=== PATIENT | male | born 1945 | race Caucasian/White ===

== ENCOUNTER 2022-10-04 11:02 | Emergency (ER) | payer BC, SELFPAY ==
--- NOTE | ~2022-10-04 | XR_ITS ---
EXAMINATION: XR CHEST CLINICAL INFORMATION: Cough COMPARISON: None available. TECHNIQUE: 2 views of the chest were obtained. FINDINGS: Status post median sternotomy. Aortic valve and stent in position. No distinct airspace consolidation. Pulmonary vascularity does not appear congested. Prominent mitral annular calcifications observed. Small linear atelectatic change toward the right base. No evidence for pneumothorax. Thoracic spondylitic change noted. XR/XR chest 2V IMPRESSION: No dominant consolidations or vascular congestion. Small linear atelectatic changes toward the right base. Postoperative changes.
--- NOTE | 2022-10-04 11:13 | ED.WEAKNESS ---
HPI - Weakness General Chief complaint: Weakness Stated complaint: Fell -1day denies LOC or head strike Time Seen by Provider: 10/04/22 13:21 Source: patient and family Mode of arrival: ambulatory Limitations: no limitations History of Present Illness HPI Narrative: 76-year-old male with history of COPD, heart disease, valvular disease presents with several issues. First issues patient fell yesterday. It was a simple mechanical fall over the rug. He denies hitting his head or loss of consciousness. Denies any headache, nausea, vomiting. Patient is additionally caught complaining of a cough. The cough has been going on for nearly 2 weeks. The cough is severe. There is no clear relieving or exacerbating features. He went to an urgent care center was provided with a prescription for Augmentin and steroids. Completed a 10 day course of Augmentin and is still on steroids. The cough is occasionally productive of clear mucus. Denies any fevers or chills. Denies any chest pain. He denies any new shortness of breath. Patient is on oxygen on intermittent basis at home. Typically ambulates with a walker or a cane. Additionally, patient complains of generalized weakness, weight loss of 50 lb in the last 6 months, loss of appetite. Some of these symptoms appear to be somewhat worse over the past week specially his appetite has completely diminished since starting steroids. Related Data Home Medications Medication Instructions Recorded Confirmed amoxicillin 875 mg-potassium 1 tab PO Q12H 06/07/21 clavulanate 125 mg tablet apixaban 5 mg tablet (Eliquis) 5 mg PO BID 06/07/21 atorvastatin 40 mg tablet 40 mg PO DAILY 06/07/21 bumetanide 1 mg tablet 1 mg PO BID 06/07/21 glipizide 5 mg tablet, extended 5 mg PO DAILY 06/07/21 release 24 hr sertraline 50 mg tablet 50 mg PO BID 06/07/21 Previous Rx's Medication Instructions Recorded azithromycin 250 mg tablet 250 mg PO DAILY 4 days #4 tabs 10/04/22 benzonatate 200 mg capsule 200 mg PO TID PRN cough #14 caps 10/04/22 dextromethorphan-guaifenesin 5 10 ml PO Q4-8H PRN cough #237 mL 10/04/22 mg-100 mg/5 mL oral liquid fluticasone 250 mcg-salmeterol 50 1 inh inhalation BID #60 ea 10/04/22 mcg/dose blistr powdr for inhalation (Advair Diskus) olmesartan 5 mg tablet 5 mg PO DAILY #14 tabs 10/04/22 tiotropium bromide 1.25 2 puff inhalation BEDTIME #4 grams 10/04/22 mcg/actuation mist for inhalation (Spiriva Respimat) Allergies Allergy/AdvReac Type Severity Reaction Status Date / Time No Known Allergies Allergy Verified 06/07/21 11:17 Review of Systems Review of Systems: CONSTITUTIONAL: + weight loss, - fever and chills. HEENT: Denies changes in vision and hearing. RESPIRATORY: Denies SOB + cough. CV: Denies palpitations no CP. GI: Denies abdominal pain, nausea, vomiting and diarrhea. : Denies dysuria and urinary frequency. MSK: Denies myalgia and joint pain. SKIN: Denies rash and pruritus. NEUROLOGICAL: Denies headache and syncope. PSYCHIATRIC: Denies recent changes in mood. Denies anxiety and depression. All other ROS are negative unless in HPI [facility] Social History Social History Advance Directives: No Advance Directives Information Provided: No Physical Exam Vital Signs: Vital Signs: Last Vital Signs Temp 98.7 F 10/04/22 11:14 Pulse 60 10/04/22 11:14 Resp 20 10/04/22 11:14 BP 107/44 L 10/04/22 11:14 Pulse Ox 98 10/04/22 11:14 O2 Del Method Room Air 10/04/22 11:14 BMI result Body Mass Index 22.9 GEN: Well developed, no acute distress, alert, oriented HEENT: Normocephalic, atraumatic, normal external ears, nose appears normal, no oropharyngeal edema or exudates Eyes: Normal to appearance Neck: Supple, no lymphadenopathy Respiratory: Talks in complete sentences, no respiratory distress, clear to auscultation bilaterally Cardiovascular: Regular rate and rhythm, no murmurs rubs or gallops Abdomen: Soft, nontender, nondistended, no guarding, no rebound Back: No CVA tenderness Extremities: No clubbing cyanosis or edema Neurologic: No focal neurologic deficits, cranial nerves 2-12 intact, strength is 5/5 bilaterally Skin: No rash Course Course Course Narrative: RME - 76 yo male with history of heart valve replacement on Eliquis, DM, HLD who presents to the ER from home via EMS for evaluation of generalized weakness, cough, decreased PO intake for several days in the setting of active bronchitis. He has been on prednisone w/ no relief. He had mechanical fall yesterday, slipped on water, fell onto right side. No complaints of pain. No headstrike or LOC. On O2 for comfort for EMS (on PRN at home). BP stable w/ low diastolic, MAP 70s. HR 60s. No ecchymosis or tendernness of right flank. Plan: CXR, basic labs and EKG Reevaluation(s) Reevaluation #1: 76-year-old male presents with cough. See his workup is complete. Has acute on chronic kidney injury. I have recommended follow-up with a senior sales executive as well as repeat blood testing next week. In addition he has a cough. At this point I am not clearly identifying this is a COPD related, definitely not pneumonia and possibly not bronchitis. He has already completed antibiotic course and steroids. Will try different antibiotic. Will not restart oral steroids but will start inhaled steroids with a long-acting beta agonist, restart Spiriva. I will provide the patient with a prescription for cough suppressant medication. We will switch the patient from an YOHAN-inhibitor to an angiotensin receptor yovany. Patient will follow-up for repeat blood pressure check with his primary care provider on the new medication as well as for the acute kidney injury. Time: 16:04 Medications Administered Discontinued Medications Generic Name Dose Route Start Last Admin Trade Name Freq PRN Reason Stop Dose Admin Azithromycin 500 mg 10/04/22 15:16 10/04/22 15:58 Azithromycin 500 Mg Tablet PO 10/04/22 15:17 500 mg ONCE ONE Administration Sodium Chloride 1,000 mls @ 999 mls/hr 10/04/22 14:30 10/04/22 15:43 Ns IV 10/04/22 15:30 Not Given .Q1H1M [facility] Medical Decision Making Medical Decision Making [facility] [place] Narrative: 76-year-old male presents with multiple complaints. One) cough. Patient complains of a cough for period of 2 weeks. The cough is severe. There is no clear relieving or exacerbating features. Pulmonary examination was clear to auscultation bilaterally without wheezing. I will order chest x-ray to rule out CHF, COPD, C pneumonia, bronchitis, pleural effusion, pulmonary edema. Treatment will depend on the underlying diagnosis. Two) generalized weakness: Patient is having increasing generalized weakness over the past 6 months. Associated with a weight loss of approximately 50 lb in significant loss of appetite. Examination is unremarkable. Will need to check laboratory analysis to rule out anemia, electrolyte abnormality or any other concerning metabolic issues. Three) unexpected weight loss: We can start the workup here with some routine laboratory testing however, patient will need to follow up with his primary care provider Differential Diagnosis Differential Diagnoses: The differential diagnosis associated with the presentation includes (See above) Admission/Observation Consideration of admission/observation: Escalation of care including admission/observation considered Lab Data MDM Lab Attestation statement: I reviewed the patient's lab results. 10/04/22 11:34 10/04/22 11:34 Labs: Lab Results 10/04/22 10/04/22 10/04/22 Range/Units 11:34 11:34 11:34 WBC 17.5 H (4.8-10.8) X10*3/uL RBC 3.17 L (4.60-5.80) X10*6/uL Hgb 9.9 L (14.0-18.0) g/dl Hct 31.2 L (42.0-52.0) % MCV 98.4 H (80.0-98.0) fL MCH 31.2 (27.0-33.0) pg MCHC 31.7 (31.0-36.0) g/dl RDW 13.1 (11.0-16.0) % Plt Count 255 (160-400) X10*3/uL MPV 10.2 (9.4-12.4) fL Immature Gran % (Auto) 1.5 H (0.0-0.4) % Neut % (Auto) 84.8 H (45-73) % Lymph % (Auto) 7.8 L (20-40) % Wright % (Auto) 5.7 (2-11) % Eos % (Auto) 0.1 (0-4) % Baso % (Auto) 0.1 (0-2) % Lymph # (Auto) 1.4 (1.2-4.9) X10*3/uL Wright # (Auto) 1.0 (0.1-1.2) X10*3/uL Eos # (Auto) 0.0 (0.0-0.4) X10*3/uL Baso # (Auto) 0.0 (0.0-0.2) X10*3/uL Abs Immat Gran (auto) 0.27 H (0.00-0.03) X10*3/uL Absolute Neuts (auto) 14.9 H (2.0-8.3) x10*3/uL Absolute Nucleated RBC 0.000 (0.0-0.012) X10*3/uL Nucleated RBC % (auto) 0.0 (0.0-0.2) /100WBC PT 20.5 H (10.0-13.1) SEC INR 1.7 H (0.9-1.1) APTT 31.7 (26.0-36.4) SEC Sodium 137 (135-145) mmol/L Potassium 4.5 (3.3-5.1) mmol/L Chloride 108 (96-108) mmol/L Anion Gap TNP BUN 161 H (9-16) mg/dL Creatinine 2.47 H (0.5-1.4) mg/dL Estim Creat Clear Calc 25.6 Estimated GFR 26 Random Glucose 114 (60-115) mg/dL Calcium 9.3 (8.4-10.2) mg/dL Magnesium 2.2 (1.6-2.6) mg/dL Total Bilirubin 0.3 (0.0-1.0) mg/dL Direct Bilirubin 0.2 (0.0-0.5) mg/dL AST 17 (5-37) U/L ALT 13 (0-40) U/L Alkaline Phosphatase 61 (39-117) U/L B-Natriuretic Peptide (<100) pg/mL Total Protein 6.9 (6.5-8.0) g/dL Albumin 3.4 L (3.5-5.0) g/dL 10/04/22 Range/Units 11:34 WBC (4.8-10.8) X10*3/uL RBC (4.60-5.80) X10*6/uL Hgb (14.0-18.0) g/dl Hct (42.0-52.0) % MCV (80.0-98.0) fL MCH (27.0-33.0) pg MCHC (31.0-36.0) g/dl RDW (11.0-16.0) % Plt Count (160-400) X10*3/uL MPV (9.4-12.4) fL Immature Gran % (Auto) (0.0-0.4) % Neut % (Auto) (45-73) % Lymph % (Auto) (20-40) % Wright % (Auto) (2-11) % Eos % (Auto) (0-4) % Baso % (Auto) (0-2) % Lymph # (Auto) (1.2-4.9) X10*3/uL Wright # (Auto) (0.1-1.2) X10*3/uL Eos # (Auto) (0.0-0.4) X10*3/uL Baso # (Auto) (0.0-0.2) X10*3/uL Abs Immat Gran (auto) (0.00-0.03) X10*3/uL Absolute Neuts (auto) (2.0-8.3) x10*3/uL Absolute Nucleated RBC (0.0-0.012) X10*3/uL Nucleated RBC % (auto) (0.0-0.2) /100WBC PT (10.0-13.1) SEC INR (0.9-1.1) APTT (26.0-36.4) SEC Sodium (135-145) mmol/L Potassium (3.3-5.1) mmol/L Chloride (96-108) mmol/L Anion Gap BUN (9-16) mg/dL Creatinine (0.5-1.4) mg/dL Estim Creat Clear Calc Estimated GFR Random Glucose (60-115) mg/dL Calcium (8.4-10.2) mg/dL Magnesium (1.6-2.6) mg/dL Total Bilirubin (0.0-1.0) mg/dL Direct Bilirubin (0.0-0.5) mg/dL AST (5-37) U/L ALT (0-40) U/L Alkaline Phosphatase (39-117) U/L B-Natriuretic Peptide 229 H (<100) pg/mL Total Protein (6.5-8.0) g/dL Albumin (3.5-5.0) g/dL Patient has a leukocytosis low which is likely secondary to steroids. Chest x-ray did not reveal any renae pneumonia. Certainly this could be due to inflammation leukemoid reaction patient also has an elevated creatinine. Unclear what his baseline is. Will attempt to get records. Independent Interpretation I performed an independent interpretation of an: Plain X-Ray (No acute cardiopulmonary disease) Radiology Impression Discussion of test interpretation with radiology: I have reviewed the radiologist's reading. Radiologist Impression: XR/XR chest 2V IMPRESSION: No dominant consolidations or vascular congestion. Small linear atelectatic changes toward the right base. ? Postoperative changes. Dictated By: Mukesh Kirkpatrick Signed By: <Electronically signed by Mukesh? Kaya in OV> 10/04/22 1300 Independent Historian Clinical information obtained from an independent historian. History obtained from or confirmed by: Spouse External Record Review External record reviewed: Office record and Prior outpatient labs Tests considered The following testing was considered but not selected: CT chest Prescription Management I considered prescription management with: Antibiotic Chronic Conditions Patient?s care impacted by: Hypertension Discharge Plan Discharge Clinical Impression: Cough, Abnormal weight loss, Appetite loss, Accidental fall, CKD (chronic kidney disease) Patient Disposition: Home, Self-Care Instructions: Fall Prevention for Older Adults (ED), Acute Cough (ED) Additional Instructions: Today were evaluated for multiple issues including cough. At this point, there is multiple thoughts of this could have occurred. For now, our treatment will include the following: You will stop lisinopril for your blood pressure. This medication may cause cough. We will switch you to losartan. Follow the instructions once daily. We will provide you with a cough syrup to be taken as directed and an additional medication called Tessalon 200 mg every 8 hours as needed for additional relief. Also for your cough and chronic respiratory disease: Continue albuterol as directed Start Spiriva Start Advair Continue your steroids Complete a 2nd course of antibiotics. I would also like you to be referred to a senior sales executive. Finally, your creatinine which is a measurement of your kidney function was slightly worse than previous. I am recommending a 1 week follow-up with her primary care provider 1 to monitor her blood pressure medications and to to recheck your creatinine level. Prescriptions: New benzonatate 200 mg capsule 200 mg PO TID PRN (Reason: cough) Qty: 14 0RF dextromethorphan-guaifenesin 5-100 mg/5 mL liquid 10 ml PO Q4-8H PRN (Reason: cough) Qty: 237 0RF olmesartan 5 mg tablet 5 mg PO DAILY Qty: 14 0RF Spiriva Respimat 1.25 mcg/actuation mist 2 puff inhalation BEDTIME Qty: 4 0RF fluticasone propion-salmeterol [Advair Diskus] 250-50 mcg/dose blister with device 1 inh inhalation BID Qty: 60 0RF azithromycin 250 mg tablet 250 mg PO DAILY 4 Days Qty: 4 0RF Rx Instructions: start on day 2 of therapy Discontinued lisinopril 5 mg tablet 5 mg PO DAILY No Action amoxicillin-pot clavulanate 875-125 mg tablet 1 tab PO Q12H bumetanide 1 mg tablet 1 mg PO BID Eliquis 5 mg tablet 5 mg PO BID sertraline 50 mg tablet 50 mg PO BID atorvastatin 40 mg tablet 40 mg PO DAILY glipizide 5 mg tablet extended release 24hr 5 mg PO DAILY Referrals: Young Kong MD [Primary Care Provider] - 2 days Brennan Bhardwaj MD [Physician] -
[2022-10-04 11:14] VITALS: BP 107/44; PULSE 60; RESP 20; TEMP 37.1; O2SAT 98; BMI 22.9
--- NOTE | 2022-10-04 11:16 | ECG_ITS ---
Test Reason : WEAKNESS Blood Pressure : / mmHG Vent. Rate : 071 BPM Atrial Rate : 000 BPM P-R Int : 000 ms QRS Dur : 126 ms QT Int : 402 ms P-R-T Axes : 000 -64 086 degrees QTc Int : 436 ms Atrial fibrillation with premature ventricular or aberrantly conducted complexes Left axis deviation Non-specific intra-ventricular conduction block Minimal voltage criteria for LVH, may be normal variant ( [employer] product ) Abnormal ECG No previous ECGs available Referred By: Little Mccloud Electronically Signed By:Enrique Hill
[2022-10-04 11:41] LABS: MANUAL DIFF FLAG NO
[2022-10-04 11:48] LABS: Basophils Percent Auto 0.1 % (0-2); Eosinophils Percent Auto 0.1 % (0-4); Hematocrit 31.2 % (42.0-52.0); Hemoglobin 9.9 g/dl (14.0-18.0); Imm Gran Abs Auto 0.27 X10*3/uL (0.00-0.03); Imm Gran Pct Auto 1.5 % (0.0-0.4); Lymphocytes Absolute Auto 1.4 X10*3/uL (1.2-4.9); Lymphocytes Percent Auto 7.8 % (20-40); Mean Corpuscular HGB Conc 31.7 g/dl (31.0-36.0); Mean Corpuscular Hemoglobin 31.2 pg (27.0-33.0); Mean Corpuscular Volume 98.4 fL (80.0-98.0); Mean Platelet Volume 10.2 fL (9.4-12.4); Monocytes Percent Auto 5.7 % (2-11); Neutrophils Absolute Auto 14.9 x10*3/uL (2.0-8.3); Neutrophils Percent Auto 84.8 % (45-73); Platelet Count 255 X10*3/uL (160-400); Red Blood Count 3.17 X10*6/uL (4.60-5.80); Red Cell Distribution Width 13.1 % (11.0-16.0); White Blood Count 17.5 X10*3/uL (4.8-10.8)
[2022-10-04 11:59] LABS: INTERNATIONAL NORM RATIO 1.7 (0.9-1.1); Prothrombin Time 20.5 SEC (10.0-13.1)
[2022-10-04 12:02] LABS: Partial Thromboplastin Time 31.7 SEC (26.0-36.4)
[2022-10-04 12:07] LABS: B Type Natriuretic Peptide 229 pg/mL (<100)
[2022-10-04 12:09] LABS: Alanine Aminotransferase 13 U/L (0-40); Albumin Level 3.4 g/dL (3.5-5.0); Alkaline Phosphatase 61 U/L (39-117); Aspartate Amino Transferase 17 U/L (5-37); Bilirubin Direct 0.2 mg/dL (0.0-0.5); Bilirubin Total 0.3 mg/dL (0.0-1.0); Calcium 9.3 mg/dL (8.4-10.2); Creatinine Clr Calc Pharmacy 25.6; Estimated Glomerular Filt Rate 26; Glucose Random 114 mg/dL (60-115); Magnesium 2.2 mg/dL (1.6-2.6); Total Protein 6.9 g/dL (6.5-8.0)
[2022-10-04 12:19] LABS: Blood Urea Nitrogen 161 mg/dL (9-16)
[2022-10-04 15:45] LABS: Chloride 108 mmol/L (96-108); Potassium 4.5 mmol/L (3.3-5.1); Sodium 137 mmol/L (135-145)
[2022-10-04] MEDS: Azithromycin 500 MG TABLET PO (15:58)
[2022-10-04 16:04] VITALS: BP 116/47; PULSE 61; RESP 12; O2SAT 100
[2022-10-04 19:39] LABS: Carbon Dioxide 13 mmol/L (22-29)
== END 2022-10-04 16:25 | disposition home or self-care (01) ==
PROVIDERS: Physician Assistant; Emergency Provider Emergency Medicine; PCP Internal Medicine
DX: R05.9 Cough, unspecified (principal); R63.4 Abnormal weight loss; Z68.22 Body mass index [BMI] 22.0-22.9, adult; E11.22 Type 2 diabetes mellitus with diabetic chronic kidney disease; I12.9 Hypertensive chronic kidney disease with stage 1 through stage 4 chronic kidney disease, or unspecified chronic kidney disease; N18.9 Chronic kidney disease, unspecified; R53.1 Weakness; E78.5 Hyperlipidemia, unspecified; Z91.81 History of falling; Z95.4 Presence of other heart-valve replacement; Z79.01 Long term (current) use of anticoagulants; Z79.899 Other long term (current) drug therapy
CPT/HCPCS: 36415; 71046; 80048; 80076; 83735; 83880; 85025; 85610; 85730; 93005; 99283; 99284

== ENCOUNTER → 2022-10-04 11:16 | Outpatient (BNV) | payer BC, SELFPAY | PROVIDERS: Emergency Provider Emergency Medicine; PCP Internal Medicine; Visit Provider Internal Medicine Cardiovascular Disease | DX: I48.91 Unspecified atrial fibrillation (principal); R94.31 Abnormal electrocardiogram [ECG] [EKG] | CPT/HCPCS: 93010 ==

== ENCOUNTER 2022-12-14 15:24 | Outpatient (AMB) | payer BC, SELFPAY ==
--- NOTE | 2022-12-14 15:25 | MHC.OFFWIV ---
Intake Vital Signs 12/14/22 15:29 Weight 155 lb BP 116/68 Blood Pressure Location Lt brachial Position Sitting Pulse 60 Pulse Source Pulse Oximeter Pulse Oximetry (%) 96 Oxygen Delivery Method Room Air Intake Visit Reasons: EST/ rash on back Intake Note: Patient here for rash on back that has been present for 1 day. Patient Tobacco Use Status: Former Tobacco user Allergies prednisone Adverse Reaction (Severe, Verified 12/14/22 15:32) kidney damage Do you need a note to return to daycare/school/sports/work: No HPI HPI Comments History of Present Illness Details The patient presents to urgent care for evaluation of a rash on his back. Patient states that he noticed it this morning. It is itchy and uncomfortable. PFSH Social History Patient Tobacco Use Status: Former Tobacco user Review of Systems Eyes Reports no additional complaints ENT Reports Normal hearing present and Denies dysphagia Card Denies dyspnea and Denies slow heart rate Resp Denies cough and Denies dyspnea GI Denies dysphagia and Denies heartburn Denies dysuria Musc Denies tingling Skin/Breast Reports lesions, Denies skin ulcer and Denies unusual bruising Neuro Reports Normal hearing present, Denies Sensory deficit (Neuro), Denies tingling and Denies paresthesias Physical Exam Vital Signs: Last Vital Signs Pulse 60 12/14/22 15:29 BP 116/68 12/14/22 15:29 Pulse Ox 96 12/14/22 15:29 Oxygen Delivery Method Room Air 12/14/22 15:29 Const General: healthy appearing and no acute distress Resp Effort & Inspection: normal respiratory effort and able to speak in complete sentences Skin Other: Erythematous lesions in a clustered pattern on the left aspect of the patient's back in a dermatomal distribution approximately T12, there is a similar and smaller appearing patch like area on the right aspect of the patient's back at around T10 Neuro Cranial nerves: Yes Normal hearing present Sensory Exam: No Sensory deficit (Neuro) Assessment & Plan Assessment & Plan (1) Shingles: Code(s): B02.9 - Zoster without complications Plan The rash appears consistent with shingles though it is in 2 distinct dermatomal distributions. Patient does have a history of having shingles in the past. Will treat with antiviral medication and recommend return for re-evaluation Medications: New valacyclovir (Valtrex) 1,000 mg PO TID 7 days 21 tabs 0RF Coding Level of Care Code Est Pt Level 3 (86482) Diagnoses Shingles B02.9
[2022-12-14 15:29] VITALS: BP 116/68; PULSE 60; O2SAT 96
== END 2022-12-14 15:51 | disposition home or self-care (01) ==
PROVIDERS: PCP Internal Medicine; Visit Provider Emergency Medicine
DX: B02.9 Zoster without complications (principal)
CPT/HCPCS: 99213